=== PATIENT | female | born 1960 | race African-American/Black ===

== ENCOUNTER 2017-10-22 11:43 | Emergency (ER) | payer OTHER ==
[~2017-10-22] VITALS: Ht 172.7 cm; Wt 79.4 kg
[~2017-10-22 11:43] MED LIST: CENTRUM SILVER1 EAC4 PO; COLACE100 MG PO; MIRALAX17 GM PO; NOHOMEMEDICATIONS; PERCOCET 7.5-31 EACH PO; TYLENOL325 MG PO
[2017-10-22] MEDS ORDERED: MOBIC7.5 MG PO (13:35)
[2017-10-22] MEDS ORDERED: NORFLEX100 MG PO (13:35)
== END 2017-10-22 14:12 | disposition home or self-care (01) ==
LOC: ER 11:43
DX: S16.1XXA Strain of muscle, fascia and tendon at neck level, initial encounter (principal); S29.012A Strain of muscle and tendon of back wall of thorax, initial encounter; V89.2XXA Person injured in unspecified motor-vehicle accident, traffic, initial encounter; Y93.89 Activity, other specified; Y92.89 Other specified places as the place of occurrence of the external cause; Y99.8 Other external cause status; Z85.048 Personal history of other malignant neoplasm of rectum, rectosigmoid junction, and anus